=== PATIENT | female | born 1975 | race Two or more races ===

== ENCOUNTER 2016-12-15 14:15 | Inpatient (IN) | payer BC, MEDICAID ==
--- NOTE | 2016-12-15 14:40 | ER Document Report ---
ED Medical Screen (RME) - General Chief Complaint: Shortness Of Breath Stated Complaint: SHORTNESS OF BREATH,HEADACHE Mode of Arrival: Ambulatory Information source: Patient Notes: 41 y/o F presents to ED c/o progressively worsening sob and generalized weakness over the last week. Reports dx with chf and internal defibrillator placed approximately 6 weeks ago. Denies fever or chest pain. I have greeted and performed a rapid initial assessment of this patient. A comprehensive ED assessment and evaluation of the patient, analysis of test results and completion of the medical decision making process will be conducted by additional ED providers. TRAVEL OUTSIDE OF THE [place] IN LAST 30 DAYS: No - Related Data Allergies/Adverse Reactions: No Known Allergies Allergy (Verified 12/15/16 14:32) Past Medical History - Social History Chew tobacco use (# tins/day): No Frequency of alcohol use: None - Past Medical History Cardiac Medical History: Reports: Hx Hypercholesterolemia, Hx Hypertension Renal/ Medical History: Denies: Hx Peritoneal Dialysis Psychiatric Medical History: Reports: Hx Depression - History of Post Physical Exam - Vital signs Vitals: Temp Pulse Resp BP Pulse Ox 99.2 F 83 20 141/90 H 98 12/15/16 14:25 12/15/16 14:25 12/15/16 14:25 12/15/16 14:25 12/15/16 14:25 - General General appearance: Alert In distress: None - Respiratory Respiratory status: No respiratory distress Breath sounds: Normal - Cardiovascular Pulses: Normal: Radial Normal capillary refill: Yes Course - Vital Signs Vital signs: Temp Pulse Resp BP Pulse Ox 99.2 F 83 20 141/90 H 98 12/15/16 14:25 12/15/16 14:25 12/15/16 14:25 12/15/16 14:25 12/15/16 14:25
[2016-12-15 15:10] LABS: ABSOLUTE BASOPHILS # (AUTO) 0.1 10^3/uL (0.0-0.2); ABSOLUTE EOSINOPHILS # (AUTO) 0.2 10^3/uL (0.0-0.6); ABSOLUTE LYMPHOCYTES (AUTO) 1.8 10^3/uL (0.5-4.7); ABSOLUTE MONOCYTES (AUTO) 0.7 10^3/uL (0.1-1.4); ABSOLUTE NEUT (AUTO) 7.7 10^3/uL (1.7-8.2); BASOPHILS % (AUTO) 0.5 % (0-2); EOSINOPHILS % (AUTO) 1.9 % (0-6); HEMATOCRIT 44.8 % (36.0-47.0); HEMOGLOBIN 15.2 g/dL (12.0-15.5); HGB HCT DIFFERENCE 0.8; LYMPHOCYTES % (AUTO) 17.4 % (13-45); MEAN CORPUSCULAR HGB CONC 33.8 g/dL (32.0-36.0); MEAN CORPUSCULAR VOLUME 89 fl (80-97); MONOCYTES % (AUTO) 6.7 % (3-13); RED BLOOD COUNT 5.05 10^6/uL (3.72-5.28); RED CELL DISTRIBUTION WIDTH 13.8 % (11.5-14.0); SEGMENTED NEUTROPHILS % (AUTO) 73.5 % (42-78); WHITE BLOOD COUNT 10.4 10^3/uL (4.0-10.5)
[2016-12-15 15:29] LABS: APPEARANCE,URINE SLIGHTLY-CLOUDY; BILIRUBIN,URINE NEGATIVE (NEGATIVE); GLUCOSE, URINE NEGATIVE (NEGATIVE); KETONES,URINE NEGATIVE (NEGATIVE); LEUKOCYTE ESTERASE,URINE SMALL (NEGATIVE); NITRITE,URINE NEGATIVE (NEGATIVE); PROTEIN,URINE 100 mg/dL (NEGATIVE); URINE SPECIFIC GRAVITY 1.024; UROBILINOGEN,URINE NEGATIVE mg/dL (<2.0)
[2016-12-15 15:30] LABS: ALANINE AMINOTRANSFERASE 47 U/L (9-52); ALBUMIN 4.6 g/dL (3.5-5.0); ALKALINE PHOSPHATASE 103 U/L (38-126); ANION GAP 13 (5-19); ASPARTATE AMINO TRANSFERASE 30 U/L (14-36); BILIRUBIN,TOTAL 0.9 mg/dL (0.2-1.3); BLOOD UREA NITROGEN 12 mg/dL (7-20); CALCIUM 9.6 mg/dL (8.4-10.2); CARBON DIOXIDE 24 mmol/L (22-30); CHLORIDE 104 mmol/L (98-107); CREATINE KINASE 49 U/L (30-135); CREATININE RESULT 0.79 mg/dL (0.52-1.25); GLUCOSE 87 mg/dL (75-110); POTASSIUM 4.2 mmol/L (3.6-5.0); SODIUM 141.4 mmol/L (137-145); TOTAL PROTEIN 7.9 g/dL (6.3-8.2)
[2016-12-15 15:54] LABS: CREATINE KINASE MB 0.41 ng/mL (<4.55)
[2016-12-15 15:57] LABS: TROPONIN I < 0.012 ng/mL
--- NOTE | 2016-12-15 16:41 | ER Document Report ---
ED General - General Chief Complaint: Shortness Of Breath Stated Complaint: SHORTNESS OF BREATH,HEADACHE Time seen by provider: 16:41 Mode of Arrival: Ambulatory Information source: Patient Notes: 41 yo smoker female c/o peripheral, edema exertional chest pain, and shortness of breath for the past 2 weeks. Saw her collision estimator in [place] 8 days ago and took increased lasix to 40mg bid for 5 days. Then went back to 20mg bid, until last 2 doses because the edema came back. No fever. 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 IMplanted cardiodefib implanted . No fever or new cough. TRAVEL OUTSIDE OF THE [place] IN LAST 30 DAYS: No - Related Data Allergies/Adverse Reactions: No Known Allergies Allergy (Verified 12/15/16 14:32) Home Medications: Current Home Medications Fluoxetine HCl [Prozac] 10 mg PO DAILY 12/15/16 [History] Furosemide [Lasix 20 mg Tablet] 40 mg PO BID 12/15/16 [History] Hydrocodone/Acetaminophen [Vicodin 5-300 mg Tablet] 1 tab PO Q6HP PRN 12/15/16 [ History] Ibuprofen [Motrin 600 mg Tablet] 600 mg PO Q6HP PRN 12/15/16 [History] Lisinopril [Prinivil 40 mg Tablet] 40 mg PO DAILY 12/15/16 [History] Metoprolol Succinate [Toprol XL 100 mg Tablet] 150 mg PO DAILY 12/15/16 [History ] Spironolactone 12.5 mg PO DAILY 12/15/16 [History] Past Medical History - General Information source: Patient - Social History Smoking Status: Current Every Day Smoker Chew tobacco use (# tins/day): No Frequency of alcohol use: None Lives with: Family Family History: Reviewed & Not Pertinent, CAD - father Patient has suicidal ideation: No Patient has homicidal ideation: No - Past Medical History Cardiac Medical History: Reports: Hx Hypercholesterolemia, Hx Hypertension Pulmonary Medical History: Reports: Other - CHF Renal/ Medical History: Denies: Hx Peritoneal Dialysis Psychiatric Medical History: Reports: Hx Depression - History of Post Past Surgical History: Reports: Hx Cardiac Surgery - implanted cardiodefibrillator Review of Systems - Review of Systems Constitutional: No symptoms reported EENT: No symptoms reported Cardiovascular: See HPI Respiratory: See HPI Gastrointestinal: No symptoms reported Genitourinary: No symptoms reported Female Genitourinary: No symptoms reported Musculoskeletal: No symptoms reported Skin: No symptoms reported Hematologic/Lymphatic: No symptoms reported Neurological/Psychological: No symptoms reported Physical Exam - Vital signs Vitals: Temp Pulse Resp BP Pulse Ox 99.2 F 83 20 141/90 H 98 12/15/16 14:25 12/15/16 14:25 12/15/16 14:25 12/15/16 14:25 12/15/16 14:25 Interpretation: Normal - General General appearance: Appears well, Alert In distress: None - HEENT Head: Normocephalic Eyes: Normal Conjunctiva: Normal Pupils: PERRL Tympanic membrane: Normal Mouth/Lips: Normal Mucous membranes: Normal Pharynx: Normal Neck: Supple. No: Lymphadenopathy - Respiratory Respiratory status: No respiratory distress Chest status: Nontender Breath sounds: Normal Chest palpation: Normal - Cardiovascular Rhythm: Regular Heart sounds: Normal auscultation Murmur: No - Abdominal Inspection: Normal Distension: No distension Bowel sounds: Normal Tenderness: Nontender. No: Tender Organomegaly: No organomegaly - Back Back: Normal, Nontender. No: CVA tenderness - Extremities General upper extremity: Normal inspection, Nontender, Normal color, Normal ROM , Normal temperature General lower extremity: Normal inspection, Nontender, Normal color, Normal ROM , Normal temperature, Normal weight bearing. No: Thomas's sign - Neurological Neuro grossly intact: Yes Cognition: Normal Orientation: AAOx4 [place] Coma Scale Eye Opening: Spontaneous [place] Coma Scale Verbal: Oriented [place] Coma Scale Motor: Obeys Commands [place] Coma Scale Total: 15 Speech: Normal Motor strength normal: LUE, RUE, LLE, RLE Sensory: Normal - Psychological Associated symptoms: Normal affect, Normal mood - Skin Skin Temperature: Warm Skin Moisture: Dry Skin Color: Normal Skin irregularity: negative: Rash Course - Re-evaluation Re-evalutation: 12/15/16 16:51 I have consulted with the supervisory physician per [facility] Guidelines., Dr. MURGUIA 12/15/16 17:28 dr cates wants me to call dr. valadez and see if they want her up at [facility]. call to cardiac connections. Dr wong is web operations manager for dr valadez. 12/15/16 17:[address] wong (cardiology at [facility]), they do not have a bed until tomorrow afternoon, only a waiting list. TX her as CHF exacerbation, She does not need to go to [facility] yet, we could diurese/treat her here at [place] per dr. wong. Dr. Cates will inpt admit to [facility]. - Vital Signs Vital signs: Temp Pulse Resp BP Pulse Ox 98.6 F 75 14 102/72 99 12/16/16 12:03 12/16/16 15:40 12/16/16 15:40 12/16/16 12:03 12/16/16 15:40 - Laboratory Result Diagrams: 12/16/16 03:35 12/16/16 03:35 Laboratory results interpreted by me: 12/15/16 12/15/16 14:45 14:45 NT-Pro-B Natriuret Pep 886 H Urine Protein 100 H Urine Blood LARGE H Ur Leukocyte Esterase SMALL H Discharge - Discharge Clinical Impression: Exertional chest pain, shortness of breath Condition: Stable Disposition: ADMITTED INPATIENT Admitting Provider: Hospitalist Unit Admitted: [facility]
[2016-12-15] MEDS ORDERED: ONDANSETRON 4 MG TAB.RAPDIS PO PRN (18:07)
[2016-12-15] MEDS ORDERED: ALBUTEROL SULFATE 0.083% NEB 2.5 MG/3 ML AMPUL NEB PRN (18:07)
--- NOTE | 2016-12-15 18:20 | PDOC H&P ---
History of Present Illness Admission Date/PCP: 12/15/16 18:02 Patient complains of: Shortness of breath for the last 2 weeks. History of Present Illness: KOLBY GALLARDO is a 41 year old female who has chronic systolic congestive heart failure most likely secondary to Chagas disease. The patient was last here in the fall of 2015 and [address] to [facility] because of new onset congestive heart failure. The patient was found to have ejection fraction of 25 % at that time. The patient relates that she has blood tests that are consistent with Chagas disease. She has not had a myocardial biopsy by her report. She has travel to [place] in the past. The patient now has had worsening shortness of breath over the last 2 weeks. She reports that she's had progressive shortness of breath as well as weight gain, orthopnea and PND. She also has had some chest tightness associated with this. She does have dyspnea on exertion of about 100 feet. Patient does take Lasix and she talked her business system consultant several days ago and doubled her Lasix dose but has continued to have shortness of breath. The patient has a defibrillator in place was placed at the end of October. Patient denies any palpitations. Past Medical History Cardiac Medical History: Reports: Congestive Heart Failure - Probably secondary to Chagas disease chronic systolic ejection fraction 25%, Hyperlipidema, Hypertension Pulmonary Medical History: Reports: None EENT Medical History: Reports: None Neurological Medical History: Reports: None Endocrine Medical History: Reports: Gestational Diabetes Renal/ Medical History: Reports: None Malignancy Medical History: Reports: None GI Medical History: Reports: None Musculoskeltal Medical History: Reports: None Skin Medical History: Reports: None Psychiatric Medical History: Reports: Depression - History of Post Traumatic Medical History: Reports: None Hematology: Reports: None Infectious Medical History: Reports: Other - Probable Chagas disease. Past Surgical History Past Surgical History: Reports: Pacemaker Social History Information Source: Patient Lives with: Family Smoking Status: Former Smoker Frequency of Alcohol Use: None Hx Recreational Drug Use: No Drugs: None Hx Prescription Drug Abuse: No - Advance Directive Resuscitation Status: Full Code Family History Family History: CAD - father Family History: Mother is 69 alive and healthy. Father at age 72 from coronary artery disease. Parental Family History Reviewed: Yes Children Family History Reviewed: No Sibling(s) Family History Reviewed.: No Medication/Allergy Home Medications: No Home Medications 06/27/16 Allergies/Adverse Reactions: No Known Allergies Allergy (Verified 12/15/16 14:32) Review of Systems Constitutional: PRESENT: weight gain. ABSENT: chills, fever(s), headache(s) Eyes: ABSENT: visual disturbances Ears: ABSENT: hearing changes Cardiovascular: PRESENT: chest pain, dyspnea on exertion, edema, orthropnea. ABSENT: palpitations Respiratory: PRESENT: dyspnea. ABSENT: cough, hemoptysis Gastrointestinal: ABSENT: abdominal pain, constipation, diarrhea, hematemesis, hematochezia, nausea, vomiting Genitourinary: ABSENT: dysuria, hematuria Musculoskeletal: ABSENT: joint swelling Integumentary: ABSENT: rash, wounds Neurological: ABSENT: abnormal gait, abnormal speech, confusion, dizziness, focal weakness, syncope Psychiatric: PRESENT: depression Endocrine: ABSENT: cold intolerance, heat intolerance, polydipsia, polyuria Hematologic/Lymphatic: ABSENT: easy bleeding, easy bruising Physical Exam Vital Signs: Temp Pulse Resp BP Pulse Ox 99.2 F 83 20 141/90 H 97 12/15/16 14:25 12/15/16 14:25 12/15/16 14:25 12/15/16 14:25 12/15/16 16:16 General appearance: PRESENT: no acute distress Head exam: PRESENT: atraumatic, normocephalic Eye exam: PRESENT: conjunctiva pink, EOMI, PERRLA. ABSENT: scleral icterus Ear exam: PRESENT: normal external ear exam Mouth exam: PRESENT: moist, tongue midline Neck exam: PRESENT: JVD - 3 cm JVD.. ABSENT: carotid bruit, lymphadenopathy, thyromegaly Respiratory exam: PRESENT: rales - Bibasilar inspiratory rales.. ABSENT: rhonchi, wheezes Cardiovascular exam: PRESENT: RRR. ABSENT: diastolic murmur, rubs, systolic murmur GI/Abdominal exam: PRESENT: normal bowel sounds, soft. ABSENT: distended, guarding, mass, organolmegaly, rebound, tenderness Rectal exam: PRESENT: deferred Extremities exam: PRESENT: pedal edema. ABSENT: calf tenderness, clubbing Neurological exam: PRESENT: alert, awake, oriented to person, oriented to place , oriented to time, oriented to situation, CN II-XII grossly intact. ABSENT: motor sensory deficit Psychiatric exam: PRESENT: appropriate affect Skin exam: PRESENT: dry, intact, warm. ABSENT: cyanosis, rash Results Impressions: Chest X-Ray 12/15/16 14:36 IMPRESSION: NO SIGNIFICANT RADIOGRAPHIC FINDING IN THE CHEST. Assessment & Plan - Diagnosis (1) Congestive heart failure (CHF) Qualifiers: Congestive heart failure type: unspecified congestive heart failure type Congestive heart failure chronicity: acute Qualified Code(s): I50.9 - Heart failure, unspecified Is this a current diagnosis for this admission?: YesPlan: Patient has acute on chronic systolic congestive heart failure. Her last ejection fraction was 25%. She has had weight gain orthopnea and PND CONSISTENT with volume overload. We will give IV Lasix 40 mg IV every 12. Her normal dose of 20 mg daily and recently increased at 40 mg daily. She most likely has congestive heart failure on the basis of Chagas disease. Patient reports that she's had positive serology but has not had a myocardial biopsy. (2) Chest pain Qualifiers: Chest pain type: unspecified Qualified Code(s): R07.9 - Chest pain, unspecified Is this a current diagnosis for this admission?: YesPlan: Most likely secondary to her underlying congestive heart failure. We'll check serial cardiac enzymes to make certain she has not had any acute cardiac event. (3) Chagas' disease (chronic) with heart involvement Is this a current diagnosis for this admission?: YesPlan: Patient has been followed at [facility] (4) Hyperlipidemia Is this a current diagnosis for this admission?: Yes (5) Hypertension Is this a current diagnosis for this admission?: Yes - Time Time Spent: 50 to 70 Minutes - Inpatient Certification Medical Necessity: Need Close Monitoring Due to Risk of Patient Decompensation
[2016-12-15 21:59] LABS: CREATINE KINASE MB 0.44 ng/mL (<4.55)
[2016-12-15 22:03] LABS: TROPONIN I < 0.012 ng/mL
[2016-12-15] MEDS: FUROSEMIDE INJ/PF 20 MG/2 ML SDV IV SCH (22:14)
[2016-12-15] MEDS: FAMOTIDINE 20 MG TABLET PO SCH (22:14)
--- NOTE | 2016-12-15 22:17 | EKG REPORT ---
SEVERITY:- ABNORMAL ECG - SINUS RHYTHM LEFT VENTRICULAR HYPERTROPHY ABNORMAL T, CONSIDER ISCHEMIA, LATERAL LEADS BORDERLINE PROLONGED QT INTERVAL : Confirmed by: Shayy Munoz 15-Dec-2016 22:17:02
[2016-12-15] MEDS: ACETAMINOPHEN 325 MG TABLET PO PRN (22:19)
[2016-12-15] MEDS ORDERED: INFLUENZA ADLT QUAD (36MOS+) 2016-17 VAC 0.5 ML SYR IM PRN (23:59)
[2016-12-16 04:38] LABS: HEMATOCRIT 43.9 % (36.0-47.0); HEMOGLOBIN 14.9 g/dL (12.0-15.5); HGB HCT DIFFERENCE 0.8; MEAN CORPUSCULAR HGB CONC 33.9 g/dL (32.0-36.0); MEAN CORPUSCULAR VOLUME 89 fl (80-97); RED BLOOD COUNT 4.96 10^6/uL (3.72-5.28); RED CELL DISTRIBUTION WIDTH 13.8 % (11.5-14.0); WHITE BLOOD COUNT 8.7 10^3/uL (4.0-10.5)
[2016-12-16 04:51] LABS: ANION GAP 13 (5-19); BLOOD UREA NITROGEN 18 mg/dL (7-20); CALCIUM 9.3 mg/dL (8.4-10.2); CARBON DIOXIDE 27 mmol/L (22-30); CHLORIDE 102 mmol/L (98-107); CREATININE RESULT 0.86 mg/dL (0.52-1.25); GLUCOSE 96 mg/dL (75-110); MAGNESIUM 2.1 mg/dL (1.6-2.3); POTASSIUM 4.1 mmol/L (3.6-5.0); SODIUM 141.8 mmol/L (137-145)
[2016-12-16 05:02] LABS: TROPONIN I < 0.012 ng/mL
[2016-12-16] MEDS: FUROSEMIDE INJ/PF 20 MG/2 ML SDV IV SCH (09:44)
[2016-12-16] MEDS: ASPIRIN 81 MG TABLET, ENT COATED PO SCH (09:44)
[2016-12-16] MEDS: FAMOTIDINE 20 MG TABLET PO SCH ×2 (09:45→21:11)
[2016-12-16] MEDS: ENOXAPARIN SODIUM INJ 40 MG/0.4 ML DISP.SYRIN SUBCUT SCH (09:45)
[2016-12-16] MEDS ORDERED: FLUOXETINE HCL 20 MG CAPSULE PO ONE (10:30)
[2016-12-16 10:34] LABS: CREATINE KINASE MB 0.35 ng/mL (<4.55)
[2016-12-16 10:35] LABS: TROPONIN I < 0.012 ng/mL
[2016-12-16] MEDS ORDERED: SPIRONOLACTONE 25 MG TABLET PO ONE (11:00)
[2016-12-16] MEDS: OXYCODONE HCL IR 5 MG TABLET PO PRN ×2 (11:00→18:44)
--- NOTE | 2016-12-16 11:44 | PDOC PROGRESS REPORT ---
Subjective Progress Note for:: 12/16/16 Subjective:: Shortness of breath has improved dramatically with the IV Lasix. Physical Exam Vital Signs: Temp Pulse Resp BP Pulse Ox 98.6 F 86 15 113/65 99 12/16/16 07:28 12/16/16 10:34 12/16/16 10:34 12/16/16 07:28 12/16/16 07:28 Intake & Output 12/15/16 12/16/16 12/17/16 06:59 06:59 06:59 Intake Total 377 Balance 377 Weight 97.8 kg General appearance: PRESENT: no acute distress Eye exam: PRESENT: conjunctiva pink. ABSENT: scleral icterus Mouth exam: PRESENT: moist, tongue midline Neck exam: ABSENT: JVD Respiratory exam: PRESENT: crackles - In the right base. Cardiovascular exam: PRESENT: RRR. ABSENT: diastolic murmur, rubs, systolic murmur GI/Abdominal exam: PRESENT: normal bowel sounds, soft. ABSENT: distended, guarding, mass, organolmegaly, rebound, tenderness Extremities exam: ABSENT: calf tenderness, clubbing, pedal edema Neurological exam: PRESENT: alert, awake, oriented to person, oriented to place , oriented to time, oriented to situation Psychiatric exam: PRESENT: appropriate affect Skin exam: PRESENT: dry, intact, warm. ABSENT: cyanosis, rash Results Laboratory Results: 12/16/16 03:35 12/16/16 03:35 12/16/16 12/16/16 03:35 03:35 WBC 8.7 RBC 4.96 Hgb 14.9 Hct 43.9 MCV 89 MCH 30.0 MCHC 33.9 RDW 13.8 Plt Count 203 Sodium 141.8 Potassium 4.1 Chloride 102 Carbon Dioxide 27 Anion Gap 13 BUN 18 Creatinine 0.86 Est GFR ( Amer) > 60 Est GFR (Non-Af Amer) > 60 Glucose 96 Calcium 9.3 Magnesium 2.1 12/15/16 12/15/16 12/16/16 21:22 21:22 03:35 Creatine Kinase 38 39 CK-MB (CK-2) 0.44 Troponin I < 0.012 12/16/16 12/16/16 03:35 09:22 Creatine Kinase CK-MB (CK-2) 0.40 0.35 Troponin I < 0.012 < 0.012 Impressions: Chest X-Ray 12/15/16 14:36 IMPRESSION: NO SIGNIFICANT RADIOGRAPHIC FINDING IN THE CHEST. Assessment & Plan - Diagnosis (1) Congestive heart failure (CHF) Qualifiers: Congestive heart failure type: unspecified congestive heart failure type Congestive heart failure chronicity: acute Qualified Code(s): I50.9 - Heart failure, unspecified Is this a current diagnosis for this admission?: YesPlan: Patient has acute on chronic systolic congestive heart failure. Her last ejection fraction was 25%. She has had weight gain orthopnea and PND CONSISTENT with volume overload. She is responding well to Lasix 40 mg IV every 12 hours. She most likely has congestive heart failure on the basis of Chagas disease. Patient reports that she's had positive serology but has not had a myocardial biopsy. (2) Chest pain Qualifiers: Chest pain type: unspecified Qualified Code(s): R07.9 - Chest pain, unspecified Is this a current diagnosis for this admission?: YesPlan: Most likely secondary to her underlying congestive heart failure. Cardiac enzymes have all been negative. (3) Chagas' disease (chronic) with heart involvement Is this a current diagnosis for this admission?: YesPlan: Patient has been followed at [facility] (4) Hyperlipidemia Is this a current diagnosis for this admission?: Yes (5) Hypertension Is this a current diagnosis for this admission?: Yes (6) Depression Is this a current diagnosis for this admission?: YesPlan: Patient is depressed in spite of being on Prozac. We will increase her Prozac dose. - Time Time Spent with patient: 25-34 minutes - Inpatient Certification Medical Necessity: Need Close Monitoring Due to Risk of Patient Decompensation - Plan Summary Plan Summary: We'll continue with IV Lasix.
[2016-12-16] MEDS ORDERED: LISINOPRIL 10 MG TABLET PO ONE (12:00)
[2016-12-16] MEDS ORDERED: METOPROLOL SUCCINATE 50 MG TAB.SR.24H PO ONE (12:00)
[2016-12-16] MEDS: ACETAMINOPHEN 325 MG TABLET PO PRN (18:43)
[2016-12-16] MEDS: FUROSEMIDE INJ/PF 40 MG/4 ML SDV IV SCH (21:11)
[2016-12-17 05:16] LABS: ANION GAP 9 (5-19); BLOOD UREA NITROGEN 23 mg/dL (7-20); CALCIUM 9.2 mg/dL (8.4-10.2); CARBON DIOXIDE 32 mmol/L (22-30); CHLORIDE 99 mmol/L (98-107); CREATININE RESULT 0.98 mg/dL (0.52-1.25); GLUCOSE 101 mg/dL (75-110); SODIUM 140.3 mmol/L (137-145)
[2016-12-17 05:25] LABS: ABSOLUTE BASOPHILS # (AUTO) 0.1 10^3/uL (0.0-0.2); ABSOLUTE EOSINOPHILS # (AUTO) 0.4 10^3/uL (0.0-0.6); ABSOLUTE LYMPHOCYTES (AUTO) 1.8 10^3/uL (0.5-4.7); ABSOLUTE MONOCYTES (AUTO) 0.8 10^3/uL (0.1-1.4); ABSOLUTE NEUT (AUTO) 6.2 10^3/uL (1.7-8.2); BASOPHILS % (AUTO) 0.6 % (0-2); EOSINOPHILS % (AUTO) 3.9 % (0-6); HEMATOCRIT 45.9 % (36.0-47.0); HEMOGLOBIN 15.5 g/dL (12.0-15.5); HGB HCT DIFFERENCE 0.6; LYMPHOCYTES % (AUTO) 19.3 % (13-45); MEAN CORPUSCULAR HEMOGLOBIN 29.7 pg (27.0-33.4); MEAN CORPUSCULAR HGB CONC 33.8 g/dL (32.0-36.0); MEAN CORPUSCULAR VOLUME 88 fl (80-97); MONOCYTES % (AUTO) 8.5 % (3-13); RED BLOOD COUNT 5.22 10^6/uL (3.72-5.28); RED CELL DISTRIBUTION WIDTH 13.9 % (11.5-14.0); SEGMENTED NEUTROPHILS % (AUTO) 67.7 % (42-78); WHITE BLOOD COUNT 9.2 10^3/uL (4.0-10.5)
[2016-12-17] MEDS: ENOXAPARIN SODIUM INJ 40 MG/0.4 ML DISP.SYRIN SUBCUT SCH (07:24)
[2016-12-17] MEDS: FUROSEMIDE INJ/PF 40 MG/4 ML SDV IV SCH (09:17)
[2016-12-17] MEDS: ASPIRIN 81 MG TABLET, ENT COATED PO SCH (09:21)
[2016-12-17] MEDS: FAMOTIDINE 20 MG TABLET PO SCH (09:21)
[2016-12-17] MEDS ORDERED: METOPROLOL SUCCINATE 50 MG TAB.SR.24H PO SCH (10:00)
[2016-12-17] MEDS ORDERED: LISINOPRIL 10 MG TABLET PO SCH (10:00)
[2016-12-17] MEDS ORDERED: FLUOXETINE HCL 20 MG CAPSULE PO SCH (10:00)
[2016-12-17] MEDS ORDERED: (PENDING PHARMACY ID) (Metoprolol Succinate [Toprol Xl 100 Mg Tablet] 150 MG) PO SCH (10:00)
[2016-12-17] MEDS ORDERED: SPIRONOLACTONE 25 MG TABLET PO SCH (10:00)
[2016-12-17 10:50] VITALS: BP 131/84
--- NOTE | 2016-12-17 12:06 | PDOC DISCHARGE SUMMARY ---
General - Admit/Disc Date/PCP Admission Date/Primary Care Provider: 12/15/16 18:07 Discharge Date: 12/17/16 - Discharge Diagnosis (1) Congestive heart failure (CHF) Is this a current diagnosis for this admission?: YesSummary: Acute on chronic systolic congestive heart failure. This is secondary to chagas infection (2) Chest pain Is this a current diagnosis for this admission?: YesSummary: Negative cardiac enzymes. (3) Chagas' disease (chronic) with heart involvement Is this a current diagnosis for this admission?: Yes (4) Hyperlipidemia Is this a current diagnosis for this admission?: Yes (5) Hypertension Is this a current diagnosis for this admission?: Yes (6) Depression Is this a current diagnosis for this admission?: YesSummary: Prozac was increased while hospitalized. - Additional Information Resuscitation Status: Full Code Discharge Diet: Cardiac Discharge Activity: Activity As Tolerated, Weigh Daily Home Medications: Hydrocodone/Acetaminophen [Vicodin 5-300 mg Tablet] 1 tab PO Q6HP PRN 12/15/16 Ibuprofen [Motrin 600 mg Tablet] 600 mg PO Q6HP PRN 12/15/16 Lisinopril [Prinivil 40 mg Tablet] 40 mg PO DAILY 12/15/16 Metoprolol Succinate [Toprol XL 100 mg Tablet] 150 mg PO DAILY 12/15/16 Spironolactone 12.5 mg PO DAILY 12/15/16 Aspirin [Ecotrin 81 mg EC Tablet] 81 mg PO DAILY tabec 12/17/16 Fluoxetine HCl [Prozac 20 mg Capsule] 40 mg PO DAILY #30 capsule 12/17/16 Furosemide [Lasix 20 mg Tablet] 40 mg PO BID #60 tablet 12/17/16 History of Present Illness History of Present Illness: KOLBY GALLARDO is a 41 year old female who has chronic systolic congestive heart failure most likely secondary to Chagas disease. The patient was last here in the fall of 2015 and was transferred to [facility] because of new onset congestive heart failure. The patient was found to have ejection fraction of 25 % at that time. The patient relates that she has blood tests that are consistent with Chagas disease. She has not had a myocardial biopsy by her report. She has travel [place] in the past. The patient now has had worsening shortness of breath over the last 2 weeks. She reports that she's had progressive shortness of breath as well as weight gain, orthopnea and PND. She also has had some chest tightness associated with this. She does have dyspnea on exertion of about 100 feet. Patient does take Lasix and she talked her hospital admitting clerk several days ago and doubled her Lasix dose but has continued to have shortness of breath. The patient has a defibrillator in place was placed at the end of October. Patient denies any palpitations. Hospital Course Hospital Course: 41-year-old female who was admitted with acute on chronic systolic congestive heart failure exacerbation. Patient was started on IV Lasix and had quick resolution of her symptoms. She did also has chest pain she presented with had negative cardiac enzymes. Patient's rest or status improved and she was back to her baseline on the day of discharge. Her chronic Lasix dose is normally 20 mg twice a day we have increased it to 40 mg twice a day. Physical Exam Vital Signs: Temp Pulse Resp BP Pulse Ox 98.7 F 76 16 131/84 H 96 12/17/16 10:49 12/17/16 10:49 12/17/16 10:49 12/17/16 10:49 12/17/16 10:49 Intake & Output 12/16/16 12/17/16 12/18/16 06:59 06:59 06:59 Intake Total 377 1395 Output Total 2900 Balance 377 -1505 Weight 97.8 kg 98.1 kg General appearance: PRESENT: no acute distress, well-developed, well-nourished Eye exam: PRESENT: conjunctiva pink, EOMI, PERRLA. ABSENT: scleral icterus Ear exam: PRESENT: normal external ear exam Mouth exam: PRESENT: moist, tongue midline Neck exam: ABSENT: JVD Respiratory exam: PRESENT: clear to auscultation lydia. ABSENT: rales, rhonchi, wheezes Cardiovascular exam: PRESENT: RRR. ABSENT: diastolic murmur, rubs, systolic murmur GI/Abdominal exam: PRESENT: normal bowel sounds, soft. ABSENT: distended, guarding, mass, organolmegaly, rebound, tenderness Rectal exam: PRESENT: deferred Extremities exam: ABSENT: calf tenderness, clubbing, pedal edema Neurological exam: PRESENT: alert, awake, oriented to person, oriented to place , oriented to time, oriented to situation, CN II-XII grossly intact. ABSENT: motor sensory deficit Psychiatric exam: PRESENT: appropriate affect Skin exam: PRESENT: dry, intact, warm. ABSENT: cyanosis, rash Results Laboratory Results: 12/17/16 04:04 12/17/16 04:04 12/17/16 12/17/16 04:04 04:04 WBC 9.2 RBC 5.22 Hgb 15.5 Hct 45.9 MCV 88 MCH 29.7 MCHC 33.8 RDW 13.9 Plt Count 213 Seg Neutrophils % 67.7 Lymphocytes % 19.3 Monocytes % 8.5 Eosinophils % 3.9 Basophils % 0.6 Absolute Neutrophils 6.2 Absolute Lymphocytes 1.8 Absolute Monocytes 0.8 Absolute Eosinophils 0.4 Absolute Basophils 0.1 Sodium 140.3 Potassium 4.0 Chloride 99 Carbon Dioxide 32 H Anion Gap 9 BUN 23 H Creatinine 0.98 Est GFR ( Amer) > 60 Est GFR (Non-Af Amer) > 60 Glucose 101 Calcium 9.2 12/15/16 12/15/16 12/16/16 21:22 21:22 03:35 Creatine Kinase 38 39 CK-MB (CK-2) 0.44 Troponin I < 0.012 12/16/16 12/16/16 03:35 09:22 Creatine Kinase CK-MB (CK-2) 0.40 0.35 Troponin I < 0.012 < 0.012 Impressions: Chest X-Ray 12/15/16 14:36 IMPRESSION: NO SIGNIFICANT RADIOGRAPHIC FINDING IN THE CHEST. Qualifiers PATEINT BEING DISCHARGED WITH ANY OF THE FOLLOWING DIAGNOSIS?: Heart Failure HF Pt being discharged on ACEI for LVEF less than 40%?: Yes HF Pt being discharged on ARBS for LVEF less than 40%?: No Reason(s) for not prescribing ARBS:: Not indicated HF Pt discharged on evidence-based Beta [place]?: Yes Plan Discharge Plan: Patient is discharged to home and she will follow-up with her primary care doctor in the next 1-2 weeks. Time Spent: Greater than 30 Minutes
== END 2016-12-17 10:55 | disposition home or self-care (01) | DRG 292 ==
LOC: ER 14:15 → UNDOADMIN 18:02 → EH 18:02 → 3N 20:56
PROVIDERS: ADMIT Internal Medicine; ATTEND Internal Medicine
PROC: 3E0234Z Introduction of Serum, Toxoid and Vaccine into Muscle, Percutaneous Approach (ICD-10-PCS; principal; 2016-12-17)
DX: I50.23 Acute on chronic systolic (congestive) heart failure (principal); B57.2 Chagas' disease (chronic) with heart involvement; I10 Essential (primary) hypertension; E78.5 Hyperlipidemia, unspecified; F32.9 Major depressive disorder, single episode, unspecified; F17.210 Nicotine dependence, cigarettes, uncomplicated; Z95.810 Presence of automatic (implantable) cardiac defibrillator; Z23 Encounter for immunization
CPT/HCPCS: 36415; 71020; 80048; 80053; 81001; 81025; 82550; 82553; 83690; 83735; 83880; 84443; 84484; 85025; 85027; 90686; 93005; 93010; 99285; J1650; J1940

== ENCOUNTER 2016-12-27 11:32 | Emergency (ER) | payer BC, MEDICAID ==
--- NOTE | 2016-12-27 12:01 | ER Document Report ---
ED Medical Screen (RME) - General Stated Complaint: CHEST PAIN Time seen by provider: 11:58 Mode of Arrival: Wheelchair Information source: Patient Notes: 41-year-old female presents to ED after being sent over here from [facility]. She was sent for difficulty breathing since last night. She states last night her temperature was 101 this one at [facility] it was 99.3. She was discharged last week from the hospital for CHF with a defibrillator. Today the nurse practitioner from [facility] stated that her lungs were tight with Rales. In RME she has expiratory wheezes throughout. Runny nose nasal congestion with sinus pressure and headache that started 2 days ago. I have greeted and performed a rapid initial assessment of this patient. A comprehensive ED assessment and evaluation of the patient, analysis of test results and completion of medical decision making process will be conducted by an additional ED providers. TRAVEL OUTSIDE OF THE [place] 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 chronic systolic ejection fraction 25%, Hx Hypercholesterolemia, Hx Hypertension Renal/ Medical History: Denies: Hx Peritoneal Dialysis Psychiatric Medical History: Reports: Hx Depression - History of Post Past Surgical History: Reports: Hx Cardiac Surgery - implanted cardiodefibrillator, Hx Pacemaker Physical Exam - Vital signs Vitals: Temp Pulse Resp BP Pulse Ox 99.0 F 96 16 130/91 H 97 12/27/16 11:50 12/27/16 11:50 12/27/16 11:50 12/27/16 11:50 12/27/16 11:50 Course - Vital Signs Vital signs: Temp Pulse Resp BP Pulse Ox 99.0 F 96 16 130/91 H 97 12/27/16 11:50 12/27/16 11:50 12/27/16 11:50 12/27/16 11:50 12/27/16 11:50
[2016-12-27] MEDS ORDERED: IPRATROPIUM/ALBUTEROL 0.5-2.5 MG/3 ML AMPUL NEB ONE (12:03)
[2016-12-27] MEDS ORDERED: PREDNISONE 20 MG TABLET PO ONE (12:04)
[2016-12-27 12:39] LABS: ABSOLUTE EOSINOPHILS # (AUTO) 0.2 10^3/uL (0.0-0.6); ABSOLUTE LYMPHOCYTES (AUTO) 0.9 10^3/uL (0.5-4.7); ABSOLUTE MONOCYTES (AUTO) 0.6 10^3/uL (0.1-1.4); ABSOLUTE NEUT (AUTO) 12.8 10^3/uL (1.7-8.2); BASOPHILS % (AUTO) 0.2 % (0-2); EOSINOPHILS % (AUTO) 1.7 % (0-6); HEMATOCRIT 42.7 % (36.0-47.0); HEMOGLOBIN 14.3 g/dL (12.0-15.5); HGB HCT DIFFERENCE 0.2; LYMPHOCYTES % (AUTO) 6.2 % (13-45); MEAN CORPUSCULAR HEMOGLOBIN 29.5 pg (27.0-33.4); MEAN CORPUSCULAR HGB CONC 33.4 g/dL (32.0-36.0); MEAN CORPUSCULAR VOLUME 88 fl (80-97); MONOCYTES % (AUTO) 4.4 % (3-13); RED BLOOD COUNT 4.85 10^6/uL (3.72-5.28); RED CELL DISTRIBUTION WIDTH 13.7 % (11.5-14.0); SEGMENTED NEUTROPHILS % (AUTO) 87.5 % (42-78); WHITE BLOOD COUNT 14.6 10^3/uL (4.0-10.5)
[2016-12-27] MEDS: ALBUTEROL SULFATE 0.083% NEB 2.5 MG/3 ML AMPUL NEB SCH ×2 (12:48→13:21)
[2016-12-27 12:56] LABS: ALANINE AMINOTRANSFERASE 41 U/L (9-52); ALBUMIN 4.7 g/dL (3.5-5.0); ALKALINE PHOSPHATASE 93 U/L (38-126); ANION GAP 11 (5-19); ASPARTATE AMINO TRANSFERASE 18 U/L (14-36); BLOOD UREA NITROGEN 12 mg/dL (7-20); CALCIUM 9.6 mg/dL (8.4-10.2); CARBON DIOXIDE 28 mmol/L (22-30); CHLORIDE 101 mmol/L (98-107); CREATINE KINASE 51 U/L (30-135); CREATININE RESULT 0.88 mg/dL (0.52-1.25); GLUCOSE 94 mg/dL (75-110); POTASSIUM 4.4 mmol/L (3.6-5.0); SODIUM 139.7 mmol/L (137-145); TOTAL PROTEIN 8.1 g/dL (6.3-8.2)
[2016-12-27 13:10] LABS: CREATINE KINASE MB 0.48 ng/mL (<4.55)
[2016-12-27 13:15] LABS: TROPONIN I < 0.012 ng/mL
--- NOTE | 2016-12-27 13:30 | ER Document Report ---
ED General - General Chief Complaint: Breathing Difficulty Stated Complaint: CHEST PAIN Time seen by provider: 13:10 Mode of Arrival: Wheelchair Information source: Patient Notes: 41-year-old female with 2 day history of fever to 101 nonproductive cough and wheezing and rhonchi. Patient reports history of congestive heart failure recently had a defibrillator placed in [place]. She was seen in urgent care today and because of her respiratory exam was sent to emergency department. Patient reports her regular physician is Susan mabry. She reports some nausea for the past 2 days but denies any vomiting, hematemesis, melena, chest pain, back pain, or abdominal pain. She reports no swelling to extremities. She reports diarrhea several times the past 2 days. She reports she is oriented had a flu shot this year. Physical Exam: General: Alert, appears well. HEENT: Normocephalic. Atraumatic. PERRLA. Extraocular movements intact. Tympanic membranes clear minimal cerumen in canals bilaterally Oropharynx clear. Neck: Supple. Non-tender. No JVD Respiratory: No respiratory distress. Wheezes rhonchi throughout all lung connor breath sounds equal good aeration no accessory muscle use left chest defibrillator site appears healthy with no signs or symptoms of infection Cardiovascular: Regular rate and rhythm. Abdominal: Normal Inspection. Soft, non-tender. No distension. Normal Bowel Sounds. Back: Non-tender. No deformity or step off. Extremities: Moves all four extremities. Lower extremities warm to plus pulses no cyanosis no edema no Homans sign Neurological: Speech clear mentation normal Psychological: Normal affect. Normal Mood. Skin: Warm. Dry. Normal color. TRAVEL OUTSIDE OF THE [place] 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 denies: Chest pain Respiratory: Cough, Short of breath Gastrointestinal: denies: Vomiting, Blood in vomit, Black stools, Rectal bleeding Genitourinary: denies: Burning, Dysuria Female Genitourinary: denies: Musculoskeletal: denies: Back pain Hematologic/Lymphatic: denies: Swollen glands Neurological/Psychological: denies: Weakness, Numbness Physical Exam - Vital signs Vitals: Temp Pulse Resp BP Pulse Ox 99.0 F 96 16 130/91 H 97 12/27/16 11:50 12/27/16 11:50 12/27/16 11:50 12/27/16 11:50 12/27/16 11:50 Course - Re-evaluation Re-evalutation: 12/27/16 14:34 Patient's BNP is mildly elevated but her chest x-ray is been read as showing no evidence for vascular congestion. Given her other complaints of fever and bodyaches I believe her rest for findings are most consistent with bronchitis and she will be prescribed antibiotics and albuterol inhaler. She is reporting much improvement in her symptoms with nebulizer treatment here and not going to make any changes in her medications otherwise. Have asked her to follow with Dr. Greer her boat patcher plastic in [place] as soon as possible for recheck. Reexamination patient's lungs again shows week rhonchi throughout all lung connor but good aeration no air hunger no respiratory distress rest and oxygen saturations of 97% on room air - Vital Signs Vital signs: Temp Pulse Resp BP Pulse Ox 99.0 F 96 16 130/91 H 97 12/27/16 11:50 12/27/16 11:50 12/27/16 11:50 12/27/16 11:50 12/27/16 11:50 - Laboratory Result Diagrams: 12/27/16 12:15 12/27/16 12:15 Laboratory results interpreted by me: 12/27/16 12/27/16 12:15 12:15 WBC 14.6 H Seg Neutrophils % 87.5 H Lymphocytes % 6.2 L Absolute Neutrophils 12.8 H NT-Pro-B Natriuret Pep 6690 H 12/27/16 14:34 Influenza nasal washing negative - Diagnostic Test Radiology reviewed: Image reviewed, Reports reviewed - EKG Interpretation by Me Additional EKG results interpreted by me: 12/27/16 13:30 EKG reviewed by myself shows sinus rhythm at 95 diffuse nonspecific inverted T waves in anterolateral leads unchanged from EKG from 12/15/2016 Discharge - Discharge Clinical Impression: Bronchitis Cardiomyopathy Qualifiers: Cardiomyopathy type: unspecified Qualified Code(s): I42.9 - Cardiomyopathy, unspecified Condition: Stable Disposition: HOME, SELF-CARE Additional Instructions: Bronchitis You have acute bronchitis. This disease is an infection or inflammation of the air passageways in your lungs. Symptoms usually include cough, low grade fever, shortness of breath, and wheezing. The cough usually persists for a couple of weeks. Most cases of bronchitis get better without antibiotics. We prescribe antibiotics when we believe bacteria are damaging your airways, or if there's high risk the bronchitis will worsen into pneumonia. Increase your fluid intake. A cool mist humidifier may make your lungs more comfortable. An expectorant (cough medicine that loosens phlegm) can help. If you smoke, STOP!!! Recovery from bronchitis can be somewhat slow, but you should see improvement within a day or two. Repeated episodes of bronchitis may result in lung damage -- for example, chronic bronchitis, recurrent pneumonias, or emphysema. Call the doctor if you develop increasing fever, shortness of breath, chest pain, bloody sputum, or otherwise worsen. If you have not improved at all after several days, contact the physician. Follow-up with Dr. Greer your boat patcher plastic in [place] as soon as possible for recheck Prescriptions: Albuterol Sulfate [Proair HFA Inhalation Aerosol 8.5 gm MDI] 2 puff IH Q4H PRN # 1 mdi PRN Reason: Azithromycin [Zithromax 250 mg Tablet] 250 mg PO ASDIR PRN #6 tablet PRN Reason:
[2016-12-27 15:24] VITALS: BP 137/89
--- NOTE | 2016-12-27 23:58 | EKG REPORT ---
SEVERITY:- ABNORMAL ECG - SINUS RHYTHM PROBABLE LEFT VENTRICULAR HYPERTROPHY ABNORMAL T, CONSIDER ISCHEMIA, LATERAL LEADS BORDERLINE PROLONGED QT INTERVAL : Confirmed by: Shayy Munoz 27-Dec-2016 23:57:23
== END 2016-12-27 15:08 | disposition home or self-care (01) ==
LOC: ER 11:32
DX: J40 Bronchitis, not specified as acute or chronic (principal); I42.9 Cardiomyopathy, unspecified; I10 Essential (primary) hypertension; R50.9 Fever, unspecified; R05 Cough; R06.2 Wheezing; R11.0 Nausea; R06.02 Shortness of breath; R19.7 Diarrhea, unspecified; Z98.890 Other specified postprocedural states; Z95.810 Presence of automatic (implantable) cardiac defibrillator; Z82.49 Family history of ischemic heart disease and other diseases of the circulatory system; R52 Pain, unspecified
CPT/HCPCS: 93005; 94640 ×2; 99285; 36415; 82553; 82550; 85025; 81025; 80053; 84484; 87804; 83880; 71020; 93010; J7512; J7620